=== PATIENT | female | born 1960 | race Caucasian/White ===

== ENCOUNTER 2016-07-20 21:49 | Emergency (ER) ==
[2016-07-20] MEDS ORDERED: HUMULIN R SUBQ ONE (22:39)
[2016-07-20 22:50] LABS: MANUAL DIFF NEEDED? NO
--- NOTE | 2016-07-20 22:51 | PROVIDER DOCUMENTATION ---
HPI-General Adult - General Chief Complaint: High Blood Sugar Stated Complaint: HIGH BLOOD SUGAR Time Seen by Provider: 07/20/16 22:22 Source: patient Allergies/Adverse Reactions: Patient Allergies Allergy/AdvReac Type Severity Reaction Status Date / Time cephalexin monohydrate * Allergy Mild HIVES Verified 07/20/16 22:27 [From Keflex] codeine Allergy Mild HIVES Verified 07/20/16 22:27 Home Medications: Montelukast [Singulair] 10 mg PO DAILY 08/16/13 Metformin HCl [Fortamet] 500 mg PO DAILY 11/08/13 Cyclobenzaprine [Flexeril] 5 mg PO TID PRN 06/14/16 Lisinopril 40 mg PO DAILY 06/14/16 Metoprolol [Lopressor] 50 mg PO BID 06/14/16 Pantoprazole [Protonix] 40 mg PO DAILY 06/14/16 Polyethylene Glycol 3350 [Purelax] 17 gm PO DAILY 06/14/16 Ranitidine [Zantac] 150 mg PO DAILY 06/14/16 Sitagliptin Phosphate [Januvia] 100 mg PO DAILY 06/14/16 - History of Present Illness -Gen Adult Nature of Presenting Problems: 56 YOWF WITH 5 YR HX OF TYPE 2 DIABETES, PRESENTS TO ED WITH C/O PT STATES HER BLOOD SUGAR USUALLY RUNS IN THE 240'S. PT STATES 1 EPISODE OF N/V LAST NIGHT. PT STATES SHE CHECKED HER SUGAR TODAY AND WAS OFF THE CHART. Location of Pain/Injury: reports: abdomen (MILD DIFFUSE TENDERNESS.) Pain Radiation: reports: no radiation Quality of Pain: reports: aching Severity: reports: mild Onset/Duration: reports: 2 days ago Timing: reports: still present Context/Activities at Onset: reports: light activity Modifying Factors: improves with: nothing Similar Symptoms Previously?: No Recently seen or treated by another doctor?: No Review of Systems - Adult - REVIEW OF SYSTEMS - ADULT Constitutional: denies: chills, fever Eyes: reports: no symptoms reported Ears, Nose, Mouth & Throat: reports: no symptoms reported Cardiovascular: denies: chest pain, palpitations, syncope Respiratory: denies: cough, shortness of breath, wheezing Gastrointestinal: reports: abdominal pain (DIFFUSE TENDERNESS). denies: diarrhea, nausea, vomiting Genitourinary: reports: no symptoms reported Musculoskeletal: denies: back pain, neck pain Integumentary: reports: no symptoms reported Neurological: denies: dizziness/vertigo, headache/migraines, syncope Psychiatric: reports: no symptoms reported Endocrine: reports: no symptoms reported Hematologic/Lymphatic: reports: no symptoms reported Allergic/Immunologic: reports: no symptoms reported All Other Systems: Reviewed and Negative Past History - Adult - PAST MEDICAL HISTORY-ADULT Review of Records: reports: Nursing Assessment Review, Medications Reviewed Cardiovascular: reports: HTN Gastrointestinal: reports: GERD Endocrine/Immune: reports: Diabetes Diabetes Type: Type 2 - PRIOR SURGERIES/PROCEDURES Surgical/Procedure History: reports: hysterectomy, tonsillectomy, other - IMMUNIZATION STATUS Childhood Immunizations: See Nurse Assessment Flu Vaccine: See Nurse Assessment - FAMILY HISTORY Family History: reviewed, not pertinent - SOCIAL HISTORY Smoking: cigarettes, greater than 1 pack/day Provider spent 3-5 mins advising pt. on dangers of tobacco.: Discussed manners to quit use, and f/u contacts for add'l counseling. Substance Use: denies Alcohol Use Frequency: never Living Situation: family Physical Exam-General - CONSTITUTIONAL General Appearance: alert, mild distress - EYES Eyes: PERRL/EOMI, pink conjunctivae - HEAD, EARS, NOSE, MOUTH & THROAT HENMT: normocephalic/atraumatic, moist mucous membranes - NECK Neck: non-tender, full range of motion, supple - RESPIRATORY Respiratory: chest non-tender, lungs clear, normal breath sounds - CARDIOVASCULAR Cardiovascular: normal peripheral pulses, tachycardia - GASTROINTESTINAL (ABDOMEN) Abdominal Exam: normal bowel sounds, non tender, soft - LYMPHATIC Lymphatic: no adenopathy - MUSCULOSKELETAL Back Exam: normal inspection, no CVA tenderness, no vertebral tenderness Extremity: normal range of motion, non-tender - SKIN Integumentary: normal color, normal turgor, warm/dry - NEUROLOGIC Neurologic: grossly normal - PSYCHIATRIC Psych/Mental Status: oriented x 3 Departure - Departure Time of Disposition Order: 00:05 DIAGNOSIS: Poorly controlled diabetes mellitus Disposition: HOME 01 Certified Medical Emergency: Emergent Condition: Stable Additional Instructions: START TAKING 2 METFORMIN TABLETS DAILY. ED Follow Up Instructions: You have been treated by a care provider in the Emergency Department. These instructions are being provided to you so you can have an understanding of how to care for yourself upon discharge. Upon discharge from the Emergency Department, you are responsible for making arrangements for follow-up care by a physician of your choice. Take all prescribed medications as directed. Return to the Emergency Department immediately for any new or worsening symptoms. You may call the Physician Referral phone number at [phone] to obtain a list of Physicians who are taking new patients. Prescriptions: Glipizide 10 mg PO DAILY #30 tablet Referrals: None,PCP [Primary Care Provider] - Naomy Brewer MD [STAFF PHYSICIAN] - Forms: Return to School/Parent Work Instructions: Hyperglycemia, [id number], Type 2 Diabetes Mellitus, Adult, [id number], Diabetes Mellitus and Food Attestation - Scribe Verification/Attestation Scribe:: Otis Hewitt Acting as Scribe for:: Ronal Motley Scribe documention review:: This chart was documented by a scribe and accurately reflects the service the provider performed and the decisions made by the provider.
[2016-07-20 22:53] LABS: BASO% 0.4 % (0.0-0.8); EOS# 0.31 X1000 (0.0-0.7); EOS% 2.2 % (0.0-10.0); HEMATOCRIT 43.8 % (37.0-47.0); HEMOGLOBIN 15.7 g/dL (12.0-16.0); IMM GRAN# 0.05 X1000 (0.0-0.04); IMM GRAN% 0.4 % (0.0-0.5); LYMPH% 33.8 % (20.5-51.1); MCH 29.6 PG (27-31); MCHC 35.8 g/dL (33-37); MCV 82.6 FL (81-99); MONO# 1.07 X1000 (0.11-0.59); MONO% 7.7 % (1.7-9.3); MPV 11.8 FL (7.4-10.4); NEUT% 55.5 % (42.2-75.2); PLT 273 X1000 (130-400)
[2016-07-20] MEDS ORDERED: HUMULIN R DOSE (PARKWAY) ONE (23:07)
[2016-07-20 23:20] LABS: AGAP 15; ALBUMIN 4.1 g/dL (3.5-5.0); ALKALINE PHOSPHATASE 152 U/L (32-104); BUN 10 mg/dL (8-22); CALCIUM 9.9 mg/dL (8.8-10.2); CHLORIDE 92 mmol/L (98-107); COSMO 288; GOT 29 U/L (10-30); GPT 22 U/L (10-36); HEMOGLOBIN A1C 9.5 % (4.8-6.0); SODIUM 130 mmol/L (136-145); TCO2 24 mmol/L (25-35); TOTAL PROTEIN 7.3 g/dL (6.3-8.3)
[2016-07-20 23:29] LABS: ACETONE SERUM NEGATIVE (NEGATIVE)
[2016-07-20 23:35] LABS: URINE CULTURE PL NEEDED? NO
[2016-07-20 23:41] LABS: BILIRUBIN URINE NEGATIVE (NEGATIVE); BLOOD URINE NEGATIVE (NEGATIVE); CLARITY CLEAR (CLEAR); COLOR STRAW; LEUKOCYTES URINE NEGATIVE (NEGATIVE); NITRITE URINE NEGATIVE (NEGATIVE); PH URINE 6.5; PROTEIN URINE NEGATIVE (NEGATIVE); UROBILINOGEN URINE NORMAL
[2016-07-20] MEDS ORDERED: GLUCOPHAGE PO ONE (23:50)
[2016-07-20] MEDS ORDERED: GLUCOTROL PO ONE (23:51)
[2016-07-21 00:19] VITALS: BP 132/89
[2016-07-21 00:22] LABS: URINE EPITHELIAL CELLS <10 /HPF (<10); URINE SOURCE CLEAN CATCH; URINE WBC <10 /HPF (<10)
== END 2016-07-21 00:19 | disposition home or self-care (01) ==
LOC: P.ED 21:49
DX: E11.65 Type 2 diabetes mellitus with hyperglycemia (principal); R11.2 Nausea with vomiting, unspecified; R10.819 Abdominal tenderness, unspecified site; R00.0 Tachycardia, unspecified; I10 Essential (primary) hypertension; K21.9 Gastro-esophageal reflux disease without esophagitis; F17.210 Nicotine dependence, cigarettes, uncomplicated; Z79.899 Other long term (current) drug therapy; Z71.6 Tobacco abuse counseling
CPT/HCPCS: 80053; 81001; 82009; 82948; 83036; 85025; 96372; J1815